=== PATIENT | female | born 1990 | race Caucasian/White ===

== ENCOUNTER 2017-11-04 01:44 | Emergency (ER) | payer SELFPAY ==
[~2017-11-04] VITALS: Ht 154.9 cm; Wt 64.5 kg
[2017-11-04 02:16] VITALS: Ht 154.9 cm; Wt 64.5 kg
[2017-11-04 04:23] VITALS: BP 120/78
== END 2017-11-04 04:20 | disposition home or self-care (01) ==
LOC: ED 01:44
DX: L23.9 Allergic contact dermatitis, unspecified cause (principal)
CPT/HCPCS: J1200; J7512

== ENCOUNTER 2017-11-06 02:01 | Emergency (ER) | payer SELFPAY ==
[~2017-11-06] VITALS: Ht 154.9 cm; Wt 65.4 kg
[2017-11-06 02:08] VITALS: Ht 154.9 cm; Wt 65.4 kg
[2017-11-06 05:02] LABS: CALCIUM 7.7 mg/dL (8.5-10.1); CARBON DIOXIDE 26.9 mmol/L (21-32); CHLORIDE SERUM 106 mmol/L (98-107); CREATININE SERUM 0.5 mg/dL (0.6-1.0); GFR1 > 60 mL/min; GLUCOSE SERUM 95 mg/dL (74-106); POTASSIUM SERUM 3.6 mmol/L (3.5-5.1); SODIUM SERUM 139 mmol/L (136-145)
[2017-11-06 05:05] LABS: BASOPHIL % 0.6 % (0-2); PLATELET COUNT 285 x10^3mcL (130-400); RED CELL DISTRIBUTION WIDTH 12.9 % (11.5-14.5)
[2017-11-06 05:07] LABS: ALBUMIN 3.2 g/dL (3.4-5.0); ALKALINE PHOSPHATASE 54 U/L (46-116); ALT/SGPT 13 U/L (14-59); AST/SGOT 11 U/L (15-37); BILIRUBIN TOTAL 0.2 mg/dL (0.20-1.00); LIPASE 134 IU/L (73-393); TOTAL PROTEIN, SERUM 6.8 g/dL (6.4-8.2)
[2017-11-06 06:02] VITALS: BP 133/89
== END 2017-11-06 06:02 | disposition home or self-care (01) ==
LOC: ED 02:01
PROVIDERS: Emergency Medicine
PROC: 3E033GC Introduction of Other Therapeutic Substance into Peripheral Vein, Percutaneous Approach (ICD-10-PCS; principal; 2017-11-06)
DX: N39.0 Urinary tract infection, site not specified (principal)
CPT/HCPCS: J2405; J7030

== ENCOUNTER 2018-09-30 01:00 | Emergency (ER) | payer SELFPAY, OTHER | END 2018-09-30 03:10 | disposition home or self-care (01) | LOC: ED 01:00 ==

== ENCOUNTER 2018-12-19 02:56 | Emergency (ER) | payer SELFPAY ==
[~2018-12-19] VITALS: Ht 154.9 cm; Wt 64.0 kg
[2018-12-19 03:08] VITALS: Ht 154.9 cm; Wt 64.0 kg
[2018-12-19 03:42] LABS: BASOPHIL % 0.6 % (0-2); PLATELET COUNT 283 x10^3mcL (130-400); RED CELL DISTRIBUTION WIDTH 13.3 % (11.5-14.5)
[2018-12-19 03:57] LABS: CALCIUM 8.3 mg/dL (8.5-10.1); CARBON DIOXIDE 25.6 mmol/L (21-32); CHLORIDE SERUM 104 mmol/L (98-107); CREATININE SERUM 0.7 mg/dL (0.6-1.0); GFR1 > 60 mL/min; GLUCOSE SERUM 101 mg/dL (74-106); POTASSIUM SERUM 3.8 mmol/L (3.5-5.1); SODIUM SERUM 141 mmol/L (136-145)
[2018-12-19 04:01] LABS: ALBUMIN 3.4 g/dL (3.4-5.0); ALKALINE PHOSPHATASE 52 U/L (46-116); ALT/SGPT 17 U/L (14-59); AMYLASE 43 U/L (25-115); AST/SGOT 7 U/L (15-37); BILIRUBIN TOTAL 0.19 mg/dL (0.20-1.00); LIPASE 104 IU/L (73-393); TOTAL PROTEIN, SERUM 7.7 g/dL (6.4-8.2)
[2018-12-19 06:26] VITALS: BP 109/77
== END 2018-12-19 06:26 | disposition home or self-care (01) ==
LOC: ED 02:56
PROVIDERS: Emergency Medicine
DX: K80.20 Calculus of gallbladder without cholecystitis without obstruction (principal)
CPT/HCPCS: J1200; J2270; J2405; J7030; Q0092

== ENCOUNTER 2019-01-31 09:30 | Emergency (ER) | payer MEDICAID ==
[~2019-01-31] VITALS: Ht 154.9 cm; Wt 64.4 kg
[2019-01-31 09:38] VITALS: Ht 154.9 cm; Wt 64.4 kg
[2019-01-31 11:58] LABS: BASOPHIL % 0.7 % (0-2); PLATELET COUNT 258 x10^3mcL (130-400); RED CELL DISTRIBUTION WIDTH 13.5 % (11.5-14.5)
[2019-01-31 12:11] LABS: CALCIUM 8.7 mg/dL (8.5-10.1); CHLORIDE SERUM 103 mmol/L (98-107); CREATININE SERUM 0.6 mg/dL (0.6-1.0); GFR1 > 60 mL/min; GLUCOSE SERUM 93 mg/dL (74-106); POTASSIUM SERUM 3.7 mmol/L (3.5-5.1); SODIUM SERUM 139 mmol/L (136-145)
[2019-01-31 12:28] LABS: CK-MB 0.6 ng/mL (0-3.6)
[2019-01-31 12:34] LABS: ALBUMIN 3.7 g/dL (3.4-5.0); ALKALINE PHOSPHATASE 85 U/L (46-116); ALT/SGPT 112 U/L (14-59); AST/SGOT 49 U/L (15-37); BILIRUBIN TOTAL 0.3 mg/dL (0.20-1.00); C REACTIVE PROTEIN 7.8 mg/dL (<=0.9); TOTAL PROTEIN, SERUM 8.2 g/dL (6.4-8.2)
[2019-01-31 12:55] LABS: ERYTHROCYTE SED RATE 36 mm/hr (0-20)
[2019-01-31 13:57] LABS: UA SPECIFIC GRAVITY 1.015 (1.005-1.035); microscopic required? YES; urine erythrocyte 2+ (NEGATIVE)
[2019-01-31 15:51] VITALS: BP 100/53
== END 2019-01-31 15:51 | disposition home or self-care (01) ==
LOC: ED 09:30
PROVIDERS: Specialist
DX: K04.7 Periapical abscess without sinus (principal)
CPT/HCPCS: J1100; J1885; J2270; J2405; J2543; J3490; J7030